=== PATIENT | female | born 1995 | race Caucasian/White ===

== ENCOUNTER 2019-05-20 16:37 | Emergency (ER) | payer BC ==
[2019-05-20 19:14] LABS: ABS Basophils 0.1 10^3/ul (0-0.2); ABS Eosinophils 0.1 10^3/ul (0-0.6); ABS Lymphocytes 2.6 10^3/ul (1.0-4.8); ABS Monocytes 0.5 10^3/ul (0-0.8); ABS Neutrophils 5.6 10^3/ul (1.5-7.7); Eosinophil % 1.7 %; Hematocrit 39 % (35-47); Hemoglobin 12.8 g/dL (12.0-16.0); Lymphocyte % 28.8 %; Mean Corpuscular HGB Conc 33 g/dL (31-36); Mean Corpuscular Hemoglobin 29 pg (27-31); Mean Corpuscular Volume 89 fL (80-97); Mean Platelet Volume 8.5 fL (7.4-10.4); Nucleated Red Blood Cells % 0.1; Platelet Count 250 10^3/uL (150-450); Red Blood Count 4.43 10^6 /uL (3.70-4.87); Red Cell Distribution Width 15 % (10-15); White Blood Count 8.9 10^3/uL (3.5-10.8)
--- NOTE | 2019-05-20 19:17 | ED ---
Dizziness - HPI Summary HPI Summary: Pt is a 24 y/o F presenting to the ED with a chief complaint of weakness. She states she has been feeling increasingly sick over the past couple of months, characterized by weakness, losing 25lbs in 3 months, dizziness, decreased appetite, and generalized pain. 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 She denies vomiting or diarrhea. - History Of Current Complaint Chief Complaint: EDGeneral Stated Complaint: WEAKNESS/LIGHT HEADED PER PT Time Seen by Provider: 05/20/19 18:44 Hx Obtained From: Patient Onset/Duration: Still Present Timing: Constant Severity Initially: Mild Severity Currently: Mild Character: Room Spinning, Weak, Dizzy Aggravating Factor(s): Nothing Alleviating Factor(s): Nothing Associated Signs And Symptoms: Positive: Decreased Oral Intake, Change In Diet. Negative: Vomiting, Diarrhea - Allergies/Home Medications Allergies/Adverse Reactions: Allergies Allergy/AdvReac Type Severity Reaction Status Date / Time No Known Allergies Allergy Verified 05/20/19 17:01 PMH/Surg Hx/FS Hx/Imm Hx Previously Healthy: Yes Endocrine/Hematology History: Denies: Hx Diabetes Cardiovascular History: Denies: Hx Hypertension Infectious Disease History: No Infectious Disease History: Denies: Traveled Outside the [place] in Last 30 Days - [place] - Family History Known Family History: Negative: Diabetes - Social History Occupation: Student Alcohol Use: None Hx Substance Use: No Substance Use Type: Reports: None Hx Tobacco Use: No Smoking Status (MU): Never Smoked Tobacco Review of Systems Positive: Other - decreased appetite, weight loss Negative: Vomiting, Diarrhea Positive: Myalgia Neurological: Other - dizziness Positive: Weakness All Other Systems Reviewed And Are Negative: Yes Physical Exam - Summary Physical Exam Summary: Constitutional: Well-developed, Well-nourished, Alert. (-) Distressed Skin: Warm, Dry HENT: Normocephalic; Atraumatic Eyes: Conjunctiva normal Neck: Musculoskeletal ROM normal neck. (-) JVD, (-) Stridor, (-) Tracheal deviation Cardio: Rhythm regular, rate normal, Heart sounds normal; Intact distal pulses; Radial pulses are 2+ and symmetric. (-) Murmur Pulmonary/Chest wall: Effort normal. (-) Respiratory distress, (-) Wheezes, (-) Rales Abd: Soft, (-) tenderness, (-) Distension, (-) Guarding, (-) Rebound Musculoskeletal: (-) Edema Lymph: (-) Cervical adenopathy Neuro: Alert, Oriented x3 Psych: Mood and affect Normal Triage Information Reviewed: Yes Vital Signs On Initial Exam: Initial Vitals Temp Pulse Resp BP Pulse Ox 98.2 F 87 18 127/94 99 05/20/19 16:55 05/20/19 16:55 05/20/19 16:55 05/20/19 16:55 05/20/19 16:55 Vital Signs Reviewed: Yes Procedures - Sedation Patient Received Moderate/Deep Sedation with Procedure: No Diagnostics - Vital Signs Vital Signs Temp Pulse Resp BP Pulse Ox 05/20/19 18:25 98.8 F 83 16 115/78 100 05/20/19 16:55 98.2 F 87 18 127/94 99 - Laboratory Lab Results: Lab Results 05/20/19 Range/Units 18:58 WBC 8.9 (3.5-10.8) 10^3/uL RBC 4.43 (3.70-4.87) 10^6 /uL Hgb 12.8 (12.0-16.0) g/dL Hct 39 (35-47) % MCV 89 (80-97) fL MCH 29 (27-31) pg MCHC 33 (31-36) g/dL RDW 15 (10-15) % Plt Count 250 (150-450) 10^3/uL MPV 8.5 (7.4-10.4) fL Neut % (Auto) 62.3 % Lymph % (Auto) 28.8 % [place] % (Auto) 6.1 % Eos % (Auto) 1.7 % Baso % (Auto) 1.1 % Absolute Neuts (auto) 5.6 (1.5-7.7) 10^3/ul Absolute Lymphs (auto) 2.6 (1.0-4.8) 10^3/ul Absolute Monos (auto) 0.5 (0-0.8) 10^3/ul Absolute Eos (auto) 0.1 (0-0.6) 10^3/ul Absolute Basos (auto) 0.1 (0-0.2) 10^3/ul Absolute Nucleated RBC 0.0 10^3/ul Nucleated RBC % 0.1 Result Diagrams: 05/20/19 18:58 05/20/19 18:58 Lab Statement: Any lab studies that have been ordered have been reviewed, and results considered in the medical decision making process. - EKG 1846 Cardiac Rate: NL - 81bpm EKG Rhythm: Sinus Rhythm ST Segment: Normal Ectopy: None Summary of EKG Findings: EKG at 1846 shows NSR at 81bpm with no STEMI. ED physician has reviewed and interpreted this report. Dizzy Course/Dx - Course Course Of Treatment: Patient is here with months of nondescript symptoms including fatigue and weakness. Patient's had multiple workups at [facility] in [place] including an MRI of her brain which involved negative. Patient had CBC, CMP, TSH, test here which were all negative. Patient was overall well-appearing with a normal exam. Patient was given PCP follow here as she does not have a primary care doctor in [place]. - Diagnoses Provider Diagnoses: Weakness Discharge ED - Sign-Out/Discharge Documenting (check all that apply): Patient Departure - Discharge Plan Condition: Stable Disposition: HOME Patient Education Materials: Weakness (ED) Referrals: Care [facility] [Outside] [facility] [place] [facility]FERRAL [Outside] Additional Instructions: Please follow up with [facility] to find a new primary care provider that you can follow up with about these ongoing symptoms. Return to the emergency department with any new or worsening symptoms. - Billing Disposition and Condition Condition: STABLE Disposition: Home - Attestation Statements Document Initiated by Aye: Yes Documenting Scribe: Jaida London Provider For Whom Aye is Documenting (Include Credential): Terry Faye MD. Scribe Attestation: Jaida Issa scribed for Terry Faye MD. on 05/20/19 at 2054. Scribe Documentation Reviewed: Yes Provider Attestation: The documentation as recorded by the Jaida foster accurately reflects the service I personally performed and the decisions made by Terry cavanaugh MD. Status of Scribe Document: Viewed
[2019-05-20 19:30] LABS: ALT 10 U/L (7-52); AST 17 U/L (13-39); Albumin 4.2 g/dL (3.2-5.2); Albumin/Globulin Ratio 1.4 (1-3); Alkaline Phosphatase 58 U/L (34-104); Anion Gap 6 mmol/L (2-11); BUN/Creatinine Ratio 13.8 (8-20); Blood Urea Nitrogen 8 mg/dL (6-24); CO2 Carbon Dioxide 29 mmol/L (22-32); Calcium 9.5 mg/dL (8.6-10.3); Chloride 106 mmol/L (101-111); EGFR African American 153.3 (>60); EGFR Non-African American 126.7 (>60); Globulin 3.1 g/dL (2-4); Glucose 87 mg/dL (70-100); Sodium 141 mmol/L (135-145); Total Protein 7.3 g/dL (6.4-8.9)
[2019-05-20 19:37] LABS: HCG Pregnancy < 0.60 mIU/mL
[2019-05-20 19:53] LABS: TSH (Thyroid Stimulating Horm) 0.74 mcIU/mL (0.34-5.60)
[2019-05-20 20:42] VITALS: BP 106/82
== END 2019-05-20 20:41 | disposition home or self-care (01) ==
LOC: ED 16:37
DX: R53.1 Weakness (principal)
CPT/HCPCS: 36415; 80053; 84443; 84702; 85025; 93005; 99282